=== PATIENT | female | born 1970 | race Caucasian/White ===

== ENCOUNTER → 2025-01-28 17:16 | Outpatient (REF) | payer OTHER, SELFPAY | LOC: RAD 17:16 | PROVIDERS: ATTENDING PHYSICIAN Physician Assistant Medical | DX: M25.551 Pain in right hip (principal); M81.0 Age-related osteoporosis without current pathological fracture | CPT/HCPCS: 73502 ==

== ENCOUNTER → 2025-05-26 07:35 | Outpatient (REF) | payer OTHER, SELFPAY | LOC: RAD 07:35 | PROVIDERS: ATTENDING PHYSICIAN Physician Assistant Medical | DX: M81.0 Age-related osteoporosis without current pathological fracture (principal) | CPT/HCPCS: 77080 ==